=== PATIENT | female | born 1980 | race African-American/Black ===

== ENCOUNTER 2017-09-20 01:52 | Emergency (ER) | payer MEDICAID ==
[~2017-09-20] VITALS: Ht 170.2 cm; Wt 87.0 kg
[2017-09-20 02:27] LABS: CLARITY URINE CLEAR (CLEAR); COLOR URINE YELLOW (YELLOW); KETONES URINE NEGATIVE (NEGATIVE); LEUKOCYTE ESTERASE URINE NEGATIVE (NEGATIVE); NITRITE URINE NEGATIVE (NEGATIVE); OCCULT BLOOD URINE NEGATIVE (NEGATIVE); PH URINE 6.5 (4.5-8.0); PROTEIN URINE NEGATIVE (NEGATIVE); SPECIFIC GRAVITY URINE 1.006 (1.005-1.030); UROBILINOGEN URINE 0.2 E.U./dL (0.2-1.0)
[2017-09-20 02:28] LABS: BASOPHILS % 1.1 % (0.0-2.0); EOSINOPHILS % 0.9 % (0.0-5.0); HEMATOCRIT. 40.5 % (36.0-48.0); HEMOGLOBIN. 13.4 g/dL (12.0-16.0); LYMPHOCYTES % 36.2 % (20.0-50.0); MEAN CORPUSCULAR HEMOGLOBIN 28.7 pg (28.0-32.0); MEAN CORPUSCULAR VOLUME 86.6 fL (81.0-99.0); MEAN PLATELET VOLUME 9.8 fl (7.4-10.4); MONOCYTES % 6.8 % (2.0-8.0); PLATELET 278 x1000/uL (130-400); RED BLOOD CELL COUNT 4.68 mill/uL (4.2-5.4); RED CELL DISTRIBUTION WIDTH 13.7 % (11.6-14.6)
[2017-09-20 02:34] LABS: CHLORIDE 108 mEq/L (98-107); PROTHROMBIN TIME 10.8 sec (9.4-11.6)
[2017-09-20 04:42] LABS: *BARBITURATES SCREEN URINE NEGATIVE (NEGATIVE); *BENZODIAZEPINES SCREEN URINE NEGATIVE (NEGATIVE); *COCAINE SCREEN URINE NEGATIVE (NEGATIVE); METHADONE URINE SCREEN NEGATIVE (NEGATIVE); OPIATES URINE SCREEN NEGATIVE (NEGATIVE)
[2017-09-20 04:43] LABS: *AMPHETAMINES SCREEN URINE NEGATIVE (NEGATIVE); CANNABINOID URINE SCREEN NEGATIVE (NEGATIVE); PHENCYCLIDINE URINE SCREEN NEGATIVE (NEGATIVE)
[2017-09-20 04:45] LABS: ETHANOL BLOOD < 10 mg/dL
[2017-09-20 05:06] VITALS: BP 135/84
== END 2017-09-20 05:14 | disposition home or self-care (01) ==
LOC: ER 01:52
DX: I10 Essential (primary) hypertension (principal); R41.82 Altered mental status, unspecified; R20.0 Anesthesia of skin
CPT/HCPCS: 36415; 70450; 71045; 80053; 80305; 81003; 81025; 84484; 85025; 85610; 93005; 99285; G0482; Z7610